=== PATIENT | female | born 1950 ===

== ENCOUNTER → 2016-04-26 | Outpatient (CLI) | payer OTHER | LOC: CIMAGING 11:25 | PROVIDERS: ATTEND Family Medicine | DX: I51.7 Cardiomegaly (principal) | CPT/HCPCS: 71020-PO ==

== ENCOUNTER → 2017-05-09 | Outpatient (CLI) | payer OTHER | LOC: CIMAGING 10:15 | PROVIDERS: ATTEND Family Medicine | DX: Z12.31 Encounter for screening mammogram for malignant neoplasm of breast (principal) ==